=== PATIENT | female | born 1960 | race Caucasian/White ===

== ENCOUNTER 2019-12-12 07:33 | Day surgery (SDC) | payer OTHER ==
[2019-12-01 15:24] VITALS: BMI 20.9
[2019-12-12] MEDS ORDERED: GENTAMICIN SO4 80 MG/2 ML VIAL ONE (10:20)
[2019-12-12] MEDS ORDERED: ceFAZolin SODIUM 1 GM VIAL ONE (10:20)
[2019-12-12] MEDS ORDERED: ONDANSETRON 4 MG/2 ML VIAL ONE (10:39)
[2019-12-12] MEDS ORDERED: DEXAMETHASONE SOD PHOSPHATE 4 MG/1 ML VIAL ONE (10:39)
[2019-12-12] MEDS ORDERED: MIDAZOLAM HCL 2 MG/2 ML SINGLE DOSE VIAL ONE (10:39)
[2019-12-12] MEDS ORDERED: PROPOFOL 20 ML ONE ×7 (10:40→11:58)
[2019-12-12] MEDS ORDERED: BUPIVACAINE HCL/PF 2.5 MG/ML - 30 ML VIAL IJ ONE (12:07)
[2019-12-12] MEDS ORDERED: GUM MASTIC/STORAX/MSAL/ALCOHOL 1 DRP DROPSBTL MC ONE (12:10)
[2019-12-12] MEDS ORDERED: BUPIVACAINE HCL/PF 0.25% (2.5MG/ML) 10 ML VIAL IJ ONE (12:11)
[2019-12-12] MEDS ORDERED: ACETAMINOPHEN INJECTION 100 ML IVPB ONE (12:27)
[2019-12-12] MEDS ORDERED: ACETAMINOPHEN 1000 MG/100 ML VIAL (NON FORMULARY) IVPB ONE (12:34)
[2019-12-12] MEDS ORDERED: LACTATED RINGERS SOLUTION 1,000 ML IV SCH (12:45)
[2019-12-12 13:25] VITALS: TEMP 98
[2019-12-12 14:08] VITALS: BP 117/70; PULSE 65
--- NOTE | 2019-12-13 16:27 | OP ---
DATE OF OPERATION: 12/12/2019 ATTENDING SURGEON: Homer Wilder MD PREOPERATIVE DIAGNOSIS: Bilateral acquired chest wall deformity, status post reconstruction with textured implants. POSTOPERATIVE DIAGNOSIS: Bilateral acquired chest wall deformity, status post reconstruction with textured implants. PROCEDURES PERFORMED: 1. Bilateral implant exchange. 2. Bilateral AlloDerm reinforcement of inframammary fold. 3. Bilateral capsulectomies. DRAINS: None. COMPLICATIONS: None. ANESTHESIA: General laryngeal mask anesthesia. ESTIMATED BLOOD LOSS: 60 mL. FLUIDS ADMINISTERED: Crystalloid solution 1.2 L. DESCRIPTION OF PROCEDURE: Patient was brought to the operating room, placed supine on the operating table. After induction of general laryngeal mask anesthesia, patient's abdomen and chest were prepped with topical DuraPrep solution and draped with sterile drapes. This completed, an appropriate timeout was performed, identifying the patient and the nature of the procedure, allowing all operative participants to ask questions and to raise concerns as indicated. Once this was finished, a sterile surgical marking pen was used to refresh the preoperative outlines, and then a No. 10 blade was used to incise skin and subcutaneous tissues along the inframammary fold, first on the right and then the left side, respectively. Dissection proceeded down on the right side until the capsule was identified. This was then opened and an anterior capsulectomy was performed. The textured Sientra implant was removed intact and passed off the table as a specimen. Attention was turned to the left side, where the inframammary fold incision was then dissected down into the capsule, again allowing for the anterior capsulectomy to be performed with the lighted retractor, and the intact Sientra textured implant removed, as well. Both pockets were copiously irrigated with antibiotic irrigation and then an AlloDerm sheet was trimmed and inset onto the lower border of the chest wall at the level of the inframammary fold. This was inset with a running, locking 3-0 PDS suture. With the capsulectomies performed and the AlloDerm inset, two smooth, round implants were used. These were Adbrainan SoftTouch implants with a reference number of [id number]. These were placed first on the left and then the right side, respectively, for symmetry, and the remainder of the open AlloDerm was tacked with a running, locking 3-0 PDS first on the left and then the right side. Layered closure was completed with interrupted 2-0 Vicryl for the deep parenchymal layer, followed by interrupted 3-0 Monocryl for the deep dermal, and lastly a running 4-0 Monocryl subcuticular suture was placed. Mastisol and Steri-Strips were then applied ABD pads, and a surgical bra were applied. Patient successfully extubated, transferred to the postanesthesia care unit in stable condition. HOMER WILDER M.D. MARTIN/[id number]
--- NOTE | 2019-12-14 12:45 | PATH ---
Surgical Pathology Report Patient Name: ELENA COLLINS [facility]. Rec. #: [id number] /Age/Gender: 1960 (Age: 58) / F Account: [id number] Location: [facility] AMBULATORY Taken: 12/12/2019 Received: 12/12/2019 Reported: 12/14/2019 Physicians: Mono Wilder Specimen(s) Received A: RIGHT BREAST CAPSULE B: LEFT BREAST CAPSULE C: LEFT & RIGHT BREAST EXPLANT Clinical History Family history of malignant neoplasm of breast Final Diagnosis A. CAPSULE, RIGHT BREAST, CAPSULECTOMY: FIBROUS CAPSULE. B. CAPSULE, LEFT BREAST, CAPSULECTOMY: FIBROUS CAPSULE. C. EXPLANTS, LEFT AND RIGHT BREAST: IMPLANTS, DESCRIBED (GROSS EXAMINATION ONLY). Electronically Signed Kellen Denise M.D. Gross Description A. Received in formalin labeled "right breast capsule," is a 3.5 x 0.9 x 0.2 cm huynh-yellow portion of fibrous tissue, consistent with breast capsule. No discrete lesions are identified. Lead Ramp Agent sections are submitted in one cassette. B. Received in formalin labeled "left breast capsule," is a 3.8 x 1.6 x 0.2 cm huynh-yellow portion of fibrous tissue, consistent with a breast capsule. No discrete lesions are identified. Lead Ramp Agent sections are submitted in one cassette. C. Received fresh labeled "left and right breast explant," are 2 huynh-yellow, intact, rubbery breast implants averaging 14 cm in diameter and 4 cm in depth. No soft tissue is present. No sections are submitted, gross only. /12/13/2019 saudi/12/13/2019
== END 2019-12-12 14:08 | disposition home or self-care (01) ==
LOC: FASU 07:33
PROVIDERS: ATTEND Surgery Plastic and Reconstructive Surgery
PROC: 0HRV0JZ Replacement of Bilateral Breast with Synthetic Substitute, Open Approach (ICD-10-PCS; 2019-12-12)
PROC: 0HUV0JZ Supplement Bilateral Breast with Synthetic Substitute, Open Approach (ICD-10-PCS; 2019-12-12)
PROC: 0HPU0JZ Removal of Synthetic Substitute from Left Breast, Open Approach (ICD-10-PCS; principal; 2019-12-12 11:23)
PROC: 0HPT0JZ Removal of Synthetic Substitute from Right Breast, Open Approach (ICD-10-PCS; 2019-12-12 11:23)
DX: M95.4 Acquired deformity of chest and rib (principal); Z90.13 Acquired absence of bilateral breasts and nipples; Z98.82 Breast implant status
CPT/HCPCS: 88300-TC; 88304-TC; 94760; J0131